=== PATIENT | male | born 1995 | race Caucasian/White ===

== ENCOUNTER 2023-02-16 12:23 | Emergency (ER) | payer OTHER ==
[~2023-02-16] VITALS: Ht 180.3 cm; Wt 97.5 kg
[2023-02-16] MEDS ORDERED: ONDANSETRON HCL/PF 4 MG/2 ML VIAL ONE (12:52)
[2023-02-16] MEDS ORDERED: PANTOPRAZOLE 40 MG VIAL ONE (12:52)
[2023-02-16] MEDS ORDERED: PANTOPRAZOLE 40 MG VIAL IV ONE (13:00)
[2023-02-16] MEDS ORDERED: IV NS 0.9% 1,000 ML BAG IV ONE (13:00)
[2023-02-16] MEDS ORDERED: ONDANSETRON HCL/PF 4 MG/2 ML VIAL IVP ONE (13:00)
[2023-02-16 13:24] LABS: BASOPHILS % (AUTO) 0.2 % (0.0-2.0); EOSINOPHILS # (AUTO) 0.1 K/uL (0.0-0.7); EOSINOPHILS % (AUTO) 0.5 % (0.0-6.0); HEMATOCRIT 45 % (39-51); HEMOGLOBIN 15.7 g/dL (13.5-17.5); LYMPHOCYTES # (AUTO) 0.3 K/uL (0.8-4.8); LYMPHOCYTES % (AUTO) 2.7 % (20.0-44.0); MEAN CORPUSCULAR HEMOGLOBIN 31 PG (26.0-33.0); MEAN CORPUSCULAR HGB CONC 35 g/dl (31.0-36.0); MEAN CORPUSCULAR VOLUME 88 fL (80-96); MONOCYTES # (AUTO) 0.6 K/uL (0.1-1.30); MONOCYTES % (AUTO) 5.5 % (2.0-12.0); NEUTROPHILS # (AUTO) 10.5 K/uL (1.8-8.9); NEUTROPHILS % (AUTO) 91.1 % (43.0-81.0); PLATELET COUNT (AUTO) 181 K/uL (150-450); RED BLOOD CELL COUNT(AUTO) 5.06 MIL/uL (4.5-6.0); RED CELL DISTRIBUTION WIDTH 14.1 % (11.5-15.0); WHITE BLOOD COUNT (AUTO) 11.6 K/uL (4.3-11.0)
[2023-02-16 13:50] LABS: ALBUMIN 3.5 g/dL (3.4-5.0); BILIRUBIN,DIRECT 0.1 mg/dL (0.0-0.2); BILIRUBIN,TOTAL 0.4 mg/dL (0.2-1.0); CALCIUM, SERUM 8.2 mg/dL (8.5-10.1); CREATININE 1.1 mg/dL (0.6-1.3); POTASSIUM 3.9 mmol/L (3.5-5.1); TOTAL PROTEIN, SERUM 6.4 g/dL (6.4-8.2)
[2023-02-16] MEDS ORDERED: PIPERACILLIN /TAZOBACTAM 3.375 G in IV D5W 50 ML IV ONE (14:00)
[2023-02-16] MEDS ORDERED: MORPHINE SULFATE INJ 2 MG/ML DISP.SYRIN IV ONE (14:00)
[2023-02-16] MEDS ORDERED: IBUP-1953 PO (14:05)
[2023-02-16] MEDS ORDERED: AMOX-430 PO (14:05)
[2023-02-16] MEDS ORDERED: ONDA4TAB5 PO (14:05)
[2023-02-16] MEDS ORDERED: MORPHINE SULFATE INJ 2 MG/ML DISP.SYRIN ONE (14:15)
[2023-02-16] MEDS ORDERED: PIPERACI/TAZO 3.375GM/D5W 50ML PB IV ONE (14:15)
[2023-02-16 14:50] VITALS: BP 112/68; TEMP 98.7; O2SAT 98
== END 2023-02-16 14:51 | disposition home or self-care (01) ==
LOC: ER 12:27
DX: A09 Infectious gastroenteritis and colitis, unspecified (principal); Z60.2 Problems related to living alone
CPT/HCPCS: 99285; 74176; 96365; 96375; 96361; 85025; 80048; 83690; 80076; 36415; J2405; J2543 ×2; J7060; J7030; C9113; J2270

== ENCOUNTER 2024-10-30 00:44 | Emergency (ER) | payer OTHER ==
[~2024-10-30] VITALS: Ht 180.3 cm; Wt 97.5 kg
[~2024-10-30 00:44] MED LIST: AMOX-430 PO; IBUP-1953 PO; ONDA4TAB5 PO
[2024-10-30] MEDS: MORPHINE SULFATE INJ 2 MG/ML DISP.SYRIN IV ONE ×4 (01:00→09:21)
[2024-10-30] MEDS: IV NS 0.9% 1,000 ML BAG IV ONE (01:14)
[2024-10-30] MEDS ORDERED: MORPHINE SULFATE INJ 4 MG/ML DISP.SYRIN ONE ×4 (01:15→09:19)
[2024-10-30] MEDS ORDERED: ONDANSETRON HCL/PF 4 MG/2 ML VIAL ONE (01:16)
[2024-10-30] MEDS ORDERED: PANTOPRAZOLE 40 MG VIAL ONE (01:16)
[2024-10-30 01:18] LABS: BASOPHILS % (AUTO) 0.5 % (0.0-2.0); EOSINOPHILS # (AUTO) 0.3 K/uL (0.0-0.7); EOSINOPHILS % (AUTO) 3.8 % (0.0-6.0); HEMATOCRIT 49 % (39-51); HEMOGLOBIN 16.4 g/dL (13.5-17.5); LYMPHOCYTES # (AUTO) 1.5 K/uL (0.8-4.8); LYMPHOCYTES % (AUTO) 19.9 % (20.0-44.0); MEAN CORPUSCULAR HEMOGLOBIN 32 PG (26.0-33.0); MEAN CORPUSCULAR HGB CONC 34 g/dl (31.0-36.0); MEAN CORPUSCULAR VOLUME 93 fL (80-96); MONOCYTES # (AUTO) 0.7 K/uL (0.1-1.30); MONOCYTES % (AUTO) 8.8 % (2.0-12.0); NEUTROPHILS # (AUTO) 5.2 K/uL (1.8-8.9); PLATELET COUNT (AUTO) 222 K/uL (150-450); RED BLOOD CELL COUNT(AUTO) 5.21 MIL/uL (4.5-6.0); WHITE BLOOD COUNT (AUTO) 7.7 K/uL (4.3-11.0)
[2024-10-30] MEDS: PANTOPRAZOLE 80 MG in IV NS 0.9% 500 ML IV ONE (01:25)
[2024-10-30] MEDS: ONDANSETRON HCL/PF 4 MG/2 ML VIAL IVP ONE (01:25)
[2024-10-30 01:32] LABS: CALCIUM, SERUM 9.4 mg/dL (8.5-10.1); CREATININE 1.1 mg/dL (0.6-1.3); POTASSIUM 4.3 mmol/L (3.5-5.1)
[2024-10-30 01:34] LABS: INR 1.07 (0.91-1.10); PARTIAL THROMBOPLASTIN TIME 26.3 SEC (24.3-34.3); PROTHROMBIN TIME 11.3 SECS (9.2-11.1)
[2024-10-30 01:37] LABS: ALBUMIN 4.2 g/dL (3.4-5.0); BILIRUBIN,DIRECT 0.1 mg/dL (0.0-0.2); BILIRUBIN,TOTAL 0.5 mg/dL (0.2-1.0); TOTAL PROTEIN, SERUM 7.4 g/dL (6.4-8.2)
[2024-10-30] MEDS: PIPERACILLIN /TAZOBACTAM 3.375 G in IV D5W 50 ML IV ONE (02:30)
[2024-10-30] MEDS ORDERED: PIPERACI/TAZO 3.375GM/D5W 50ML PB IV ONE (02:41)
[2024-10-30] MEDS ORDERED: HYDROMORPHONE 1 MG/1 ML DISP.SYRIN ONE (03:36)
[2024-10-30] MEDS: HYDROMORPHONE 1 MG/1 ML DISP.SYRIN IV ONE (03:39)
[2024-10-30 03:58] LABS: APPEARANCE,URINE CLEAR (CLEAR); BILIRUBIN,URINE NEGATIVE (NEGATIVE); BLOOD, URINE NEGATIVE Ery/uL (NEGATIVE); COLOR,URINE YELLOW (YELLOW); KETONES,URINE NEGATIVE (NEGATIVE); LEUKOCYTE ESTERASE ,URINE NEGATIVE (NEGATIVE); NITRITE, URINE NEGATIVE (NEGATIVE); PROTEIN,URINE NEGATIVE (NEGATIVE); UGLUCOSE NEGATIVE (NEGATIVE); UROBILINOGEN,URINE 0.2 EU/dL (0.2)
[2024-10-30 12:46] VITALS: BP 106/78; TEMP 97.9; O2SAT 96
== END 2024-10-30 12:47 | disposition short-term general hospital (02) ==
LOC: ER 00:58
DX: J98.2 Interstitial emphysema (principal); K22.3 Perforation of esophagus; K92.0 Hematemesis; R07.9 Chest pain, unspecified; R10.13 Epigastric pain; Z60.2 Problems related to living alone
CPT/HCPCS: 99285; 96366; 96365; 96375; 71250; 71045; 96368; 93005; 96376; 85025; 80048; 83690; 80076; 81003; 36415; 84484; 85730; J1171; J2270 ×4; J2405; J2543 ×2; J7060; J7030; J2470; A4223; J7040